=== PATIENT | female | born 1955 | race Two or more races ===

== ENCOUNTER 2017-07-05 16:22 | Emergency (ER) | payer OTHER ==
[~2017-07-05] VITALS: Ht 154.9 cm; Wt 63.5 kg
[2017-07-05] MEDS ORDERED: LOPRESSOR HCT1 EACH (17:21)
[2017-07-05] MEDS ORDERED: HYDROCHLOROTHIA25 MG (17:21)
[2017-07-05] MEDS ORDERED: COZAAR25 MG (17:21)
[2017-07-05] MEDS ORDERED: ULTRAM50 MG PO (20:17)
[2017-07-05] MEDS ORDERED: SKELAXIN800 MG PO (20:17)
== END 2017-07-05 22:46 | disposition home or self-care (01) ==
LOC: ER 16:22
DX: R10.31 Right lower quadrant pain (principal)

== ENCOUNTER 2017-11-16 14:15 | Emergency (ER) | payer OTHER ==
[~2017-11-16] VITALS: Ht 157.5 cm; Wt 68.0 kg
[~2017-11-16 14:15] MED LIST: COZAAR25 MG; HYDROCHLOROTHIA25 MG; LOPRESSOR HCT1 EACH; SKELAXIN800 MG PO; ULTRAM50 MG PO
== END 2017-11-16 19:05 | disposition home or self-care (01) ==
LOC: ER 14:15
DX: M62.830 Muscle spasm of back (principal); M62.838 Other muscle spasm

== ENCOUNTER 2025-02-05 09:17 | Outpatient (CLI) | payer OTHER | END 2025-02-05 09:19 | disposition home or self-care (01) | LOC: SONOGRAMA 09:17 | PROVIDERS: ATTEND Pathology Anatomic Pathology & Clinical Pathology | DX: D34 Benign neoplasm of thyroid gland (principal); E07.89 Other specified disorders of thyroid; E04.2 Nontoxic multinodular goiter ==